=== PATIENT | male | born 1995 | race Caucasian/White ===

== ENCOUNTER 2021-01-08 02:51 | Emergency (ER) | payer SELFPAY ==
[~2021-01-08] VITALS: Ht 170.2 cm; Wt 84.1 kg
[2021-01-08 02:56] VITALS: Ht 170.2 cm; Wt 84.1 kg
[2021-01-08 04:50] VITALS: BP 120/82
== END 2021-01-08 04:50 | disposition home or self-care (01) ==
LOC: D.ER 02:51
DX: S01.81XA Laceration without foreign body of other part of head, initial encounter (principal); S61.214A Laceration without foreign body of right ring finger without damage to nail, initial encounter; S09.90XA Unspecified injury of head, initial encounter; W19.XXXA Unspecified fall, initial encounter; Y93.61 Activity, american tackle football; Y92.9 Unspecified place or not applicable